=== PATIENT | female | born 1985 | race Caucasian/White ===

== ENCOUNTER 2022-05-28 13:10 | Emergency (ER) | payer MEDICAID ==
[~2022-05-28] VITALS: Ht 172.7 cm; Wt 91.0 kg
[2022-05-28 13:12] VITALS: BP 124/86
[2022-05-28] MEDS ORDERED: ACETAMINOPHEN 325MG TABLET PO ONE (15:30)
[2022-05-28] MEDS ORDERED: METHOCARBAMOL 500MG TABLET PO ONE (15:30)
[2022-05-28] MEDS ORDERED: TOPUD MT (16:37)
[2022-05-28] MEDS ORDERED: IBUP-2028 MT (16:37)
== END 2022-05-28 17:20 | disposition home or self-care (01) ==
LOC: ER 13:10
DX: M54.2 Cervicalgia (principal); M25.512 Pain in left shoulder; G89.11 Acute pain due to trauma; R03.0 Elevated blood-pressure reading, without diagnosis of hypertension; V49.49XA Driver injured in collision with other motor vehicles in traffic accident, initial encounter; Y93.89 Activity, other specified; Y92.488 Other paved roadways as the place of occurrence of the external cause
CPT/HCPCS: 73030; 81025; 99284